=== PATIENT | male | born 2000 | race African-American/Black ===

== ENCOUNTER 2018-07-04 14:28 | Emergency (ER) | payer OTHER ==
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
[2018-07-04 16:51] VITALS: BP 128/72
== END 2018-07-04 16:49 | disposition home or self-care (01) ==
LOC: ED 14:28
DX: H11.32 Conjunctival hemorrhage, left eye (principal); K05.219 Aggressive periodontitis, localized, unspecified severity; J45.909 Unspecified asthma, uncomplicated; Z88.0 Allergy status to penicillin; X58.XXXA Exposure to other specified factors, initial encounter; Y92.9 Unspecified place or not applicable
CPT/HCPCS: 70486; 99282